=== PATIENT | female | born 1960 | race Caucasian/White ===

== ENCOUNTER 2017-05-01 08:43 | Emergency (ER) | payer BC ==
[2017-05-01 09:16] VITALS: BP 125/72
--- NOTE | 2017-05-01 16:58 | UC ---
Silvana Lopez Edward, scribed for Torie Gates DO on 05/01/17 at 0915 . Headache HPI - HPI Summary HPI Summary: 57 y/o female presents to [facility] c/o severe MISHRA and hematemesis starting this morning. The patient does not describe this as the "worst MISHRA ever," but states this does not feel like a normal migraine. PMHx migraines and often takes Advil for her MISHRA's. The patient took Advil for her MISHRA yesterday. She states an overwhelming not feeling well. The patient woke up in a confused state this morning at 07:30, per the patient's , and screaming to him for help. Per the patient's , the patient was spitting up phlegm and blood on the car ride here. He notes the patient had 5-6 episodes of vomit with bright red blood in the vomit since waking up this morning, per . Associated sx: severe diarrhea last night, dehydration yesterday, N/V, sensitive to bright lights, and trouble walking. Denies neck pain, pain in other places, dizziness, CP, SOB, and ABD pain. PMHx HTN, no cardiac disease. FHx father had type II, pancreatic cancer, lung cancer. Past medications reviewed on visit. Most of history gathered from . - History Of Current Complaint Chief Complaint: UCGeneralIllness Stated Complaint: RESP COMPLAINT Time Seen by Provider: 05/01/17 08:54 Hx Obtained From: Patient Onset/Duration: Sudden Onset, Lasting Hours - This morning, Still Present Onset Of Symptoms: Sudden Initially Headache Was: Severe Currently Pain Is: Severe Timing: Constant, Hours Character: Throbbing, Unable To Describe Location of Headache: Diffuse Aggravating Factor: Bright Lights Associated Signs And Symptoms: Positive: Nausea, Vomiting - Bright red blood in vomit, Other (Noted In Comments) - Confusion, diarrhea yesterday, trouble walking. No CP, SOB, ABD pain. Negative: Dizziness, Neck Pain - Allergies/Home Medications Allergies/Adverse Reactions: Allergies Allergy/AdvReac Type Severity Reaction Status Date / Time No Known Allergies Allergy Verified 05/01/17 08:55 Home Medications: Home Medications Fluticasone NASAL * [Flonase *] 1 spray PRN 05/01/17 [History] PMH/Surg Hx/FS Hx/Imm Hx - Additional Past Medical History Additional PMH: Negative: cardiac disease Previously Healthy: No Cardiovascular History: Hypertension Neurological History: Migraine - Frequently takes NSAIDS - Surgical History Surgical History: None - Family History Known Family History: Positive: Other - Lung cancer, pancreatic cancer Negative: Cardiac Disease, Hypertension, Diabetes - Social History Occupation: Employed Full-time Lives: With Family Alcohol Use: None Substance Use Type: None Smoking Status (MU): Unknown if Ever Smoked Review of Systems Constitutional: Negative Skin: Negative Eyes: Negative ENT: Negative Respiratory: Negative - No SOB Cardiovascular: Negative - No CP Gastrointestinal: Vomiting - Hematemesis, Diarrhea - Last night, Nausea Genitourinary: Negative Motor: Other - Trouble walking Neurovascular: Negative Musculoskeletal: Negative Neurological: Headache - Severe, Other - Confusion Psychological: Negative All Other Systems Reviewed And Are Negative: Yes Physical Exam Triage Information Reviewed: Yes Completion Of Physical Exam Limited Due To: Altered Mental Status Appearance: Well-Nourished, Ill-Appearing - Moderately, Pain Distress - Moderate , Obese, Other: - Somnalent Vital Signs: Initial Vital Signs Temp 97.5 F 05/01/17 08:47 Pulse 87 05/01/17 08:47 Resp 16 05/01/17 08:47 BP 125/72 05/01/17 08:47 Pulse Ox 97 05/01/17 08:47 Vital Signs Reviewed: Yes Eyes: Positive: Conjunctiva Clear. Negative: Discharge ENT: Positive: Hearing grossly normal. Negative: Muffled/hoarse voice Neck: Positive: Supple, Nontender Respiratory: Positive: Lungs clear, Normal breath sounds, No respiratory distress, No accessory muscle use Cardiovascular: Positive: RRR, No Murmur Abdomen Description: Positive: Nontender, Soft. Negative: Distended, Guarding Bowel Sounds: Positive: Present Musculoskeletal Exam: Normal Neurological Exam: Normal - A&Ox3, CN II-XII INTACT, SENSORY MOTOR INTACT, REFLEXES INTACT, NO CEREBELLAR SIGNS, FACIAL SYMMETRY, NEGATIVE ROMBERG, NORMAL GAIT, negative kernig's and brudzinsky's Neurological: Positive: Alert, Muscle Tone Normal Psychological: Positive: Age Appropriate Behavior Skin Exam: Normal, Other - Warm, dry, normal color - Additional Comments Bloody vomit remains on shirt. Most of history gathered from Headache Course/Dx - Course Course Of Treatment: Patient's called EMS ([facility]) who instructed the patient to go to the and also helped the patient get into the car as she could not walk. While the patient was being prepared to go to the hospital, she cried out in pain indicating head pain, per nursing. The patient gripped her head and became unresponsive @ 09:54, I was called back into the room at this time. Her HR was regular and the patient was breathing on her own but struggling to breath. A nasalpharyngeal airway was inserted by paramedics, the patient was bagmasked and hooked to a monitor, showing NSR with ectopic beats, transient tachy, transient destin, and transient severely elevated BP. It was difficult to obtain O2 sat reading in the high 80's. An IO was inserted, but no meds were given here as we were uncertain of her hydration status. The patient left for the hospital with a BP of 158/90. @ time of departure, all vital signs were otherwise stable. - Differential Dx/Diagnosis Differential Diagnosis/HQI/PQRI: CVA, Meningitis, Migraine, Subarachnoid Hemorrhage, Tension Headache, Viral Syndrome, Other - gi bleed, brain mass, seizure Provider Diagnoses: ams, mishra, hematemesis Discharge - Discharge Plan Condition: Stable Disposition: TRANS HIGHER LVL OF CARE FAC Referrals: Veronica Greer PA [Primary Care Provider] - The documentation as recorded by the Silvana dawson Edward accurately reflects the service I personally performed and the decisions made by , Torie Gates DO.
== END 2017-05-01 10:14 | disposition short-term general hospital (02) ==
LOC: UCEAST 08:43
DX: R41.82 Altered mental status, unspecified (principal); R51 Headache; K92.0 Hematemesis; I49.49 Other premature depolarization; R00.0 Tachycardia, unspecified; R00.1 Bradycardia, unspecified; R03.0 Elevated blood-pressure reading, without diagnosis of hypertension; I10 Essential (primary) hypertension; G43.909 Migraine, unspecified, not intractable, without status migrainosus; Z79.1 Long term (current) use of non-steroidal anti-inflammatories (NSAID)
CPT/HCPCS: 99215; G0463

== ENCOUNTER 2017-05-01 10:30 | Emergency (ER) | payer BC ==
[2017-05-01] MEDS ORDERED: NS 0.9% 1000 ML* 1,000 ML IV ONE (10:32)
[2017-05-01 10:47] LABS: Hematocrit 50 % (35-47); Hemoglobin 16.2 g/dl (12.0-16.0); Mean Corpuscular HGB Conc 32 g/dl (31-36); Mean Corpuscular Hemoglobin 29 pg (27-31); Mean Corpuscular Volume 92 fL (80-97); Mean Platelet Volume 9 um3 (7.4-10.4); Red Cell Distribution Width 14 % (10.5-15); White Blood Count 27.3 10^3/ul (3.5-10.8)
[2017-05-01 10:49] LABS: Add Diff/Slide Review? Slide Review Added; Comments Flag Yes
[2017-05-01] MEDS ORDERED: Succinylcholine* 20 MG/ML 10 ML VIAL ONE (10:54)
--- NOTE | 2017-05-01 11:01 | RAD ---
Indication: Neurologic changes, combative. CT of the brain was performed without IV contrast. Ventricular structures are midline. Extensive subarachnoid hemorrhage is noted in the basilar cisterns, sylvian fissure and interhemispheric fissure. There is also subarachnoid hemorrhage in the left sylvian fissure. No midline shift is noted. The ventricles are normal in size. IMPRESSION: Extensive subarachnoid hemorrhage involving basilar cisterns, sylvian fissures and interhemispheric fissures. No midline shift is noted.
[2017-05-01] MEDS ORDERED: Midazolam* 1 MG/ML 2 ML VIAL (2 MG) IV ONE (11:14)
[2017-05-01] MEDS ORDERED: Propofol* 100 ML ONE (11:18)
[2017-05-01] MEDS ORDERED: Midazolam* 1 MG/ML 10 ML VIAL (10 MG) ONE (11:18)
[2017-05-01] MEDS ORDERED: Mannitol 25% (12.5 GM) 50 ML* 12.5 GM/50 ML VIAL IV ONE (11:23)
[2017-05-01] MEDS ORDERED: niMODipine CAP* 30 MG ONE (11:25)
[2017-05-01 11:34] LABS: ALT 23 U/L (7-52); Alkaline Phosphatase 54 U/L (34-104); BUN/Creatinine Ratio 22.2 (8-20); Blood Urea Nitrogen 20 mg/dL (6-24); CO2 Carbon Dioxide 17 mmol/L (22-32); Calcium 8.9 mg/dL (8.6-10.3); Chloride 106 mmol/L (101-111); Cholesterol 226 mg/dL; EGFR African American 82.4 (>60); EGFR Non-African American 64.1 (>60); Globulin 2.5 g/dL (2-4); Glucose 230 mg/dL (70-100); HDL Cholesterol 35.7 mg/dL; LDL Cholesterol 137 mg/dL; Sodium 137 mmol/L (133-145); Total Protein 6.5 g/dL (6.4-8.9); Triglycerides 267 mg/dL
[2017-05-01 11:40] LABS: Anion Gap 14 mmol/L (2-11)
[2017-05-01 11:44] VITALS: BP 137/100
[2017-05-01] MEDS ORDERED: Midazolam* 1 MG/ML 5 ML VIAL (5 MG) IV ONE (11:58)
[2017-05-01] MEDS ORDERED: Propofol* 500 MG/50 ML BTL IV SCH (12:00)
--- NOTE | 2017-05-01 12:01 | ED ---
Belinda Lopez Thomas, scribed for Moe Osuna MD on 05/01/17 at 1043 . Complex/Multi-Sys Presentation - HPI Summary HPI Summary: The pt is a 57 y/o F BIBA from [facility] after her condition deteriorated after being seen there. Per EMS, she became unresponsive after being seen at Urgent Care. Per EMS, she has had a MISHRA since last night. She still had one when she woke up this AM. She additionally c/o hemoptysis (per EMS, in the ambulance), generalized illness (since the last few days). Per EMS she has an IO on her R side. Per EMS, she had agonal respiration after she became unresponsive. Per EMS , she was sinus in the ambulance. Pt additionally c/o Per EMS, she recently returned from [place] 10 days ago. Her arrived just before the pt headed down to [place] at approximately 10:40. Per , additionally c/o MISHRA ( since last night before she went to bed), sinus pressure (onset yesterday before she went to sleep), fever, hemoptysis ("spiting up fluid and blood", onset this AM). The pt's notes that at 07:30 this AM she was "hysterical --very atypical", and she was having short conversations. [place] ambulance told the that they thought the pt was had applied too much medication for her sinus infection, although he notes that they did not diagnose her with that. Per , Arianna indicated that they did not think she was having a stroke. Per , she needed help when entering the car. Per , she had been taking "lots of ibuprofen the last few days". PMHx: HTN (well- controlled, she takes hydrochlorothiazide). LEVEL 5 CAVEAT: HPI IS LIMITED BECAUE PATIENT NO FOLLOW COMMANDS - History Of Current Complaint Hx Obtained From: Family/Commercial Lending Vice President - , EMS - [place] [facility] Hx From Patient Unobtainable Due To: Altered Mental Status Associated Signs And Symptoms: Positive: Headache - onset last night and this AM , Hemoptysis, Fever, Other - POS: unresponsive (after being seen at Urgent Care) , generalized illness (per ), agonal respiration (per EMS), "hysterical-- very atypical" (per ), "sinus pressure" - Allergies/Home Medications Allergies/Adverse Reactions: Allergies Allergy/AdvReac Type Severity Reaction Status Date / Time No Known Allergies Allergy Verified 05/01/17 08:55 PMH/Surg Hx/FS Hx/Imm Hx Previously Healthy: No - LEVEL 5 CAVEAT: PMHX IS LIMITED BECAUE PATIENT NO FOLLOW COMMANDS Cardiovascular History: Reports: Hx Hypertension Opthamlomology History: Denies: Hx Legally Blind - Cancer History Hx Chemotherapy: No Hx Radiation Therapy: No Infectious Disease History: Denies: Hx Clostridium Difficile, Hx Hepatitis, Hx Human Immunodeficiency Virus (HIV), Hx of Known/Suspected MRSA, Hx Shingles, Hx Tuberculosis, Hx Known/ Suspected VRE - Family History Known Family History: Positive: Other - LEVEL 5 CAVEAT: PMHX IS LIMITED BECAUE PATIENT NO FOLLOW COMMANDS - Social History Alcohol Use: None Substance Use Type: Reports: None Smoking Status (MU): Unknown if Ever Smoked Review of Systems - ROS Summary Review of Systems Summary: LEVEL 5 CAVEAT: ROS IS LIMITED BECAUE PATIENT DOES NOT FOLLOW COMMANDS Positive: Fever ENT: Other - POS: "sinus pressure" (onset last night, per ) Positive: Other - POS: hemptysis (per and EMS, "coughing up blood and fluid"); agonal respiratoin (per EMS, in the ambulance) Neurological: Other - POS: unresponsive after being seen at urgent care [facility] [employer]; "hysterical--very atypical" (per ); abnormally short conversations Positive: Headache - onset last night and still this AM All Other Systems Reviewed And Are Negative: No Physical Exam - Summary Physical Exam Summary: Physical Exam is limited by the patient's inability to follow commands. VITAL SIGNS: GENERAL: The patient is an obese female. She is very lethargic and obtunded. She is not able to follow commands. HEAD AND FACE: EMS placed a nasal trumpet in the patient's R nostril. EYES: The pupils are reactive to light. LUNGS: The lungs have bilateral crackles. CVS: S1 and S2 present. No murmurs appreciated. ABDOMEN: Decreased bowel sounds are noted. EXTREMITIES: No edema noted NEURO: Obtunded, does not follow commands. GCS 7 SKIN: warm and dry LEVEL 5 CAVEAT: PE IS LIMITED BY THE PATIENT'S INABILITY TO FOLLOW COMMANDS Triage Information Reviewed: Yes Vital Signs Reviewed: Yes Procedures - Intubation Time of Intubation: 11:00 - approximately Intubation Method: nasotracheal Diagnostics - Laboratory Lab Results: Lab Results 05/01/17 05/01/17 05/01/17 Range/Units 10:38 10:38 10:58 WBC 27.3 H (3.5-10.8) 10^3/ul RBC 5.50 H (4.0-5.4) 10^6/ul Hgb 16.2 H (12.0-16.0) g/dl Hct 50 H (35-47) % MCV 92 (80-97) fL MCH 29 (27-31) pg MCHC 32 (31-36) g/dl RDW 14 (10.5-15) % Plt Count 316 (150-450) 10^3/ul MPV 9 (7.4-10.4) um3 Neut % (Auto) 82.1 (38-83) % Lymph % (Auto) 10.9 L (25-47) % [place] % (Auto) 6.7 (1-9) % Eos % (Auto) 0.1 (0-6) % Baso % (Auto) 0.2 (0-2) % Absolute Neuts (auto) 22.4 H (1.5-7.7) 10^3/ul Absolute Lymphs (auto) 3.0 (1.0-4.8) 10^3/ul Absolute Monos (auto) 1.8 H (0-0.8) 10^3/ul Absolute Eos (auto) 0 (0-0.6) 10^3/ul Absolute Basos (auto) 0.1 (0-0.2) 10^3/ul Absolute Nucleated RBC 0.02 10^3/ul Nucleated RBC % 0.1 INR (Anticoag Therapy) 0.92 (0.89-1.11) APTT 25.7 L (26.0-36.3) seconds Sodium (133-145) mmol/L Potassium Chloride (101-111) mmol/L Carbon Dioxide (22-32) mmol/L Anion Gap BUN (6-24) mg/dL Creatinine (0.51-0.95) mg/dL Est GFR ( Amer) (>60) Est GFR (Non-Af Amer) (>60) BUN/Creatinine Ratio (8-20) Glucose (70-100) mg/dL Calcium (8.6-10.3) mg/dL Total Bilirubin (0.2-1.0) mg/dL AST ALT (7-52) U/L Alkaline Phosphatase (34-104) U/L Troponin I Total Protein (6.4-8.9) g/dL Albumin (3.2-5.2) g/dL Globulin (2-4) g/dL Albumin/Globulin Ratio (1-3) Triglycerides mg/dL Cholesterol mg/dL LDL Cholesterol mg/dL HDL Cholesterol mg/dL Blood Type A Positive Antibody Screen Negative 05/01/17 Range/Units 10:58 WBC (3.5-10.8) 10^3/ul RBC (4.0-5.4) 10^6/ul Hgb (12.0-16.0) g/dl Hct (35-47) % MCV (80-97) fL MCH (27-31) pg MCHC (31-36) g/dl RDW (10.5-15) % Plt Count (150-450) 10^3/ul MPV (7.4-10.4) um3 Neut % (Auto) (38-83) % Lymph % (Auto) (25-47) % [place] % (Auto) (1-9) % Eos % (Auto) (0-6) % Baso % (Auto) (0-2) % Absolute Neuts (auto) (1.5-7.7) 10^3/ul Absolute Lymphs (auto) (1.0-4.8) 10^3/ul Absolute Monos (auto) (0-0.8) 10^3/ul Absolute Eos (auto) (0-0.6) 10^3/ul Absolute Basos (auto) (0-0.2) 10^3/ul Absolute Nucleated RBC 10^3/ul Nucleated RBC % INR (Anticoag Therapy) (0.89-1.11) APTT (26.0-36.3) seconds Sodium 137 (133-145) mmol/L Potassium Pending Chloride 106 (101-111) mmol/L Carbon Dioxide 17 L (22-32) mmol/L Anion Gap Pending BUN 20 (6-24) mg/dL Creatinine 0.90 (0.51-0.95) mg/dL Est GFR ( Amer) 82.4 (>60) Est GFR (Non-Af Amer) 64.1 (>60) BUN/Creatinine Ratio 22.2 H (8-20) Glucose 230 H (70-100) mg/dL Calcium 8.9 (8.6-10.3) mg/dL Total Bilirubin 0.60 (0.2-1.0) mg/dL AST Pending ALT 23 (7-52) U/L Alkaline Phosphatase 54 (34-104) U/L Troponin I Pending Total Protein 6.5 (6.4-8.9) g/dL Albumin 4.0 (3.2-5.2) g/dL Globulin 2.5 (2-4) g/dL Albumin/Globulin Ratio 1.6 (1-3) Triglycerides 267 mg/dL Cholesterol 226 mg/dL LDL Cholesterol 137 mg/dL HDL Cholesterol 35.7 mg/dL Blood Type Antibody Screen Result Diagrams: 05/01/17 10:38 05/01/17 10:58 Lab Statement: Any lab studies that have been ordered have been reviewed, and results considered in the medical decision making process. - CT CT Brain CT Interpretation: Positive (See Comments) - Extensive subarachnoid hemorrhage involving basilar cisterns, sylvian fissures and interhemispheric fissures. No midline shift is noted. CT Interpretation Completed By: Radiologist - EKG 10:51 Cardiac Rate: NL - 76 BPM EKG Interpretation: NSR. No ST elevation. Complex Multi-Symp Course/Dx Course Of Treatment: Procedure - Endotracheal Intubation. Permit was implied secondary to emergent situation. An LMA and bougie were placed within arm's reach. A Glidescope blade was inserted into the oropharynx at which time the vocal cords were visualized. A 7.5 Indian endotracheal tube was inserted and visualized going through the vocal cords. The stylette was removed. Colorimetric change was visualized on the CO2 meter. Breath sounds were heard in both lung patten equally. The endotracheal tube was placed at 23 cm, measured at the teeth. Portable chest x-ray ordered for confirmation of tube level. Post intubation sedation ordered. Intubation was made at the first attempt. No complications were encountered. Assessment/Plan: The pt is a 57 y/o F BIBA from [facility] after her condition deteriorated after being seen there. Per EMS, she became unresponsive after being seen at Urgent Care. Per EMS, she has had a MISHRA since last night. She still had one when she woke up this AM. She additionally c/o hemoptysis (per EMS , in the ambulance), generalized illness (since the last few days). Per EMS she has an IO on her R side. Per EMS, she had agonal respiration after she became unresponsive. Per EMS, she was sinus in the ambulance. Pt additionally c/o Per EMS, she recently returned from [place] 10 days ago. Her arrived just before the pt headed down to [place] at approximately 10:40. Per , additionally c/o MISHRA (since last night before she went to bed), sinus pressure ( onset yesterday before she went to sleep), fever, hemoptysis ("spiting up fluid and blood", onset this AM). The pt's notes that at 07:30 this AM she was "hysterical--very atypical", and she was having short conversations. [place] ambulance told the that they thought the pt was had applied too much medication for her sinus infection, although he notes that they did not diagnose her with that. Per , Arianna indicated that they did not think she was having a stroke. Per , she needed help when entering the car. Per , she had been taking "lots of ibuprofen the last few days". PMHx: HTN (well-controlled, she takes hydrochlorothiazide). The patient initially came via ambulance. The patient was obtunded and she has a trumpet in her R nostril. We immediately sent her to CT scan, which shows Extensive subarachnoid hemorrhage involving basilar cisterns, sylvian fissures. and interhemispheric fissures. No midline shift is noted. In order to protect the airway, she was intubated. There was one attempt for intubation. At this point , the airway is controlled. She was given Keppra 1.5g, mannitol 50g. At this time we discussed the case with Dr. Patricia from [facility], who accepted the patient. He also recommended Nimodipine 60mg via NG tube. He also recommended to transfer the patient by helicopter as soon as possible. The patient is stable but critical at this point, intubated, and awaiting transport via helicopter. - Diagnoses Differential Diagnoses/HQI/PQRI: Cardiac Ischemia, CVA Provider Diagnoses: Subarachnoid hemorrhage - Physician Notifications Discussed Care Of Patient With: Yue Schneider Time Discussed With Above Provider: 10:52 Instructed by Provider To: Other - Consulted with Yue Schneider, who will not take the patient. Consulted with Dr. Woodall, neurosurgery at [facility], who will accept the patient. Discharge - Discharge Plan Condition: Stable Disposition: TRANS HIGHER LVL OF CARE FAC Discharge Disposition Comment: Jasen Hollingsworth Referrals: Veronica Greer PA [Primary Care Provider] - The documentation as recorded by the Belinda dawson Thomas accurately reflects the service I personally performed and the decisions made by , Moe Osuna MD.
--- NOTE | 2017-05-01 12:44 | RAD ---
Indication: Respiratory failure. Single frontal view of the chest performed at 1130 hours was reviewed. No prior study is available. No mediastinal shift is noted. Cardiomegaly is noted. Nasogastric tube and endotracheal tube is in place. IMPRESSION: TUBES AND LINES APPEAR IN APPROPRIATE POSITION. VASCULAR CONGESTION IS NOTED.
== END 2017-05-01 12:50 | disposition short-term general hospital (02) ==
LOC: ED 10:30
DX: I60.9 Nontraumatic subarachnoid hemorrhage, unspecified (principal); R51 Headache; R41.82 Altered mental status, unspecified
CPT/HCPCS: 36415; 70450; 71010; 80053; 80061; 84484; 85025; 85610; 85730; 86850; 86900; 86901; 93005; 94002; 99285; A9270-GY; J0330; J2250; J2704

== ENCOUNTER 2018-10-28 09:40 | Emergency (ER) | payer BC ==
[2018-10-28 10:01] VITALS: BP 151/98
--- NOTE | 2018-10-28 12:48 | UC ---
Skin Complaint HPI - HPI Summary HPI Summary: Patient states yesterday she noticed some discomfort under her left breast. Patient states this morning it was red, more painful. No drainage. No trauma. No fevers or chills. Patient is not immunocompromised or anticoagulated. Patient states she's never had anything similar. Patient gets annual mammograms all which are normal and not concerning. No history of breast cancer. No nipple changes. Patient's medications reviewed this visit. - History of Current Complaint Chief Complaint: UCSkin Time Seen by Provider: 10/28/18 10:06 Stated Complaint: SPOT ON L BREAST Hx Obtained From: Patient ?: No Onset/Duration: Gradual Onset Skin Exposure Onset/Duration: Days Ago Onset Severity: Mild Pain Intensity: 1 - Allergy/Home Medications Allergies/Adverse Reactions: Allergies Allergy/AdvReac Type Severity Reaction Status Date / Time No Known Allergies Allergy Verified 10/28/18 10:01 Home Medications: Home Medications Aspirin 81 mg CHEW TAB* [Aspirin Low Dose TAB*] 81 mg PO DAILY 10/28/18 [ History Confirmed 10/28/18] Atorvastatin* [Lipitor*] 40 mg PO 1700 10/28/18 [History Confirmed 10/28/18] Metoprolol Tartrate TAB* [Lopressor TAB*] 25 mg PO DAILY 10/28/18 [History Confirmed 10/28/18] Potassium Chlor TAB* [Klor Con ER TAB*] 20 meq PO DAILY 10/28/18 [History Confirmed 10/28/18] PMH/Surg Hx/FS Hx/Imm Hx Previously Healthy: Yes Cardiovascular History: Hypertension Neurological History: Other - ruptured aneursym - Surgical History Surgical History: None Surgery Procedure, Year, and Place: cranial anurism - Family History Known Family History: Positive: Non-Contributory Negative: Cardiac Disease, Hypertension, Diabetes - Social History Alcohol Use: Occasionally Substance Use Type: None Smoking Status (MU): Never Smoked Tobacco Review of Systems All Other Systems Reviewed And Are Negative: Yes Constitutional: Negative: Fever Skin: Positive: Other - left breast Is Patient Immunocompromised?: No Physical Exam - Summary Physical Exam Summary: Vital Signs Reviewed: Yes A+Ox3, no distress Eyes: Conjunctiva Clear ENT: Hearing grossly normal neck: supple Respiratory: Positive: No respiratory distress, No accessory muscle use Cardiovascular: skin color reflect adequate perfusion Musculoskeletal Exam: HOLLOWAY x 4 without difficulty Neurological: Positive: Alert, ambulatory without difficulty Psychological: Positive: Normal Response To Family Skin: Positive: left breast: left,lower outer quadrant pt with 2x2cm area of erythema with central pointing lesion - with gentle pressure - open and drained - wound culture taken. no fluctuance, no induration - demarcated Triage Information Reviewed: Yes Vital Signs: Initial Vital Signs Temp 98.6 F 10/28/18 09:55 Pulse 70 10/28/18 09:55 Resp 18 10/28/18 09:55 BP 151/98 10/28/18 09:55 Pulse Ox 95 10/28/18 09:55 Course/Dx - Course Course Of Treatment: Pt presents with 24 hours progessive area or erythema left lower outer breast. No h/o similar. No h/o MRSA - pt has been hospitalized < 2 years ago. not immunocompromised. Expressed wound and cultures taken. No appeciable abscess. demarcate erythema. doxy. reviewed with pt s/s worsening infection, return precautions. slightly elevated bloood pressure - existing diagnosis - Diagnoses Provider Diagnosis: Cellulitis Discharge - Sign-Out/Discharge Documenting (check all that apply): Patient Departure All imaging exams completed and their final reports reviewed: No Studies - Discharge Plan Condition: Stable Disposition: HOME Prescriptions: DOXYcycline CAP(*) [DOXYcycline 100MG CAP(*)] 100 mg PO BID #20 cap Patient Education Materials: Cellulitis (ED) Referrals: Veronica Greer PA [Primary Care Provider] - Additional Instructions: - apply warm soaks, 3 times a day for 10 min - Take antibiotics as prescribed until gone - A sample from your wound has been sent to the lab for further testing - if you need a different antibiotic you will receive a call from a care long line teamster - monitor your wound for increased reddness, red streaking - if you develop increased reddness, fever, pain, or any other concerns it is recommended you go to the emergency department for further evaluation - schedule a follow-up with your primary doctor for later this week. - Billing Disposition and Condition Condition: STABLE Disposition: Home
--- OUTSIDE RECORDS SUMMARY | 2018-10-28 13:29 | XMS REPORT | Continuity of Care Document ---
:1960 External Reference #:[id number] Author Name Jeaneth Onofre Care Team Providers Name Role Phone Veronica Greer PA Care Team Information Gifts Officer Unavailable Veronica Greer PA Primary Care Physician Unavailable Payers Type Date Identification Numbers Payment Provider Subscriber Policy Number: [id number] [employer] Wendy Dejesus PayID: [id number] [address] [address] [place] [address] Advance Directives Description No Information Available Problems Date Description Provider Status Onset: 06/30/2018 Communicating hydrocephalus Ilir Felton M.D. 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 [facility] Tobacco Use Start: Unknown Never Smoked Cigarettes Smoking Status Reviewed: 10/18/18 Never Smoked Cigarettes ETOH Use Drinks Alcoholic Beverages Occasionally Tobacco Use Start: Unknown Patient has never smoked Recreational Drug Use Denies Drug Use Exercise Type/Frequency Exercises sporadically yoga 1 time a week, PT and personal training 2x week Allergies, Adverse Reactions, Alerts Description No Known Drug Allergies Medications Medication Date Status Form Strength Qnty SIG Indications Ordering Provider Proair HFA 08/08/ Active Aerosol 108(90Base 17gm 1 puff Aydee 2017 ) mcg/Act every 6 Selene, hours as MD needed Aspirin Ec 00/ Active Tablets DR 81mg take 1 tab Unknown 0000 by mouth every day Atorvastatin 00/00/ Active Tablets 40mg 1 by mouth Unknown Calcium 0000 every day Metoprolol /00/ Active Tablets 25mg 2 tablets Unknown Tartrate 0000 in Am, 1 tab hs hold for sbo <100 hr <60 Potassium 00/ Active Tablets ER 20Meq 1 by mouth Unknown Chloride ER 0000 every day Sertraline HCL 00/ Active Tablets 25mg 1 tab [place], 0000 daily FAHAD Mina Symbicort 01/30/ Hx Aerosol 80-4.5mcg/ 13.8u 2 puff R06.02 Aydee 2018 - Act nits twice a Seleen, 08/07/ day 2018 Amitriptyline / Hx Tablets 25mg 1 by mouth Unknown HCL 0000 - every 04/16/ night at 2018 bedtime Cetirizine HCL / Hx Tablets 10mg 1 by mouth Unknown 0000 - every day 2018 Milk Of / Hx Suspension 400mg/5ML once a day Unknown Magnesia 0000 - 2016 Plavix / Hx Tablets 75mg 1 by mouth Unknown 0000 - every day 2017 Protonix / Hx Tablets DR 40mg 1 by mouth Unknown 0000 - every day 10/18/ (pt not 2018 currently using) Vimpat / Hx Tablets 200mg 1 tab by Unknown 0000 - mouth 09/29/ twice a 2017 day Fluticasone / Hx Suspension 50mcg/Act 2 sprays Unknown Propionate 0000 - each 10/17/ nostril 2019 daily as needed Lisinopril / Hx Tablets 10mg 1/2 [place], 0000 - tablets by Veronica 10/17/ FAHAD Vogt 2019 daily Immunizations Description No Information Available Vital Signs Date Vital Result Comment 10/18/2018 10:35am Height 67 inches 5'7" Weight 253.38 lb Heart Rate 56 /min BP Systolic Sitting 104 mmHg Lue large cuff BP Diastolic Sitting 70 mmHg Lue large cuff Respiratory Rate 12 /min O2 % BldC Oximetry 95 % BMI (Body Mass Index) 39.7 kg/m2 06/30/2018 11:08am Height 67 inches 5'7" Weight 232.00 lb BP Systolic Sitting 102 mmHg BP Diastolic Sitting 70 mmHg Pain Level 0 BMI (Body Mass Index) 36.3 kg/m2 04/17/2018 9:10am Height 67 inches 5'7" Weight 232.50 lb Heart Rate 72 /min BP Systolic Sitting 122 mmHg Lue large cuff BP Diastolic Sitting 80 mmHg Lue large cuff Respiratory Rate 16 /min O2 % BldC Oximetry 93 % BMI (Body Mass Index) 36.4 kg/m2 03/06/2018 2:07pm Height 67 inches 5'7" Weight 231.00 lb Heart Rate 70 /min BP Systolic Sitting 104 mmHg Rue large cuff BP Diastolic Sitting 74 mmHg Rue large cuff Respiratory Rate 16 /min O2 % BldC Oximetry 92 % BMI (Body Mass Index) 36.2 kg/m2 01/30/2018 9:47am Height 67 inches 5'7" Weight 225.00 lb Heart Rate 72 /min BP Systolic Sitting 106 mmHg BP Diastolic Sitting 70 mmHg Respiratory Rate 14 /min O2 % BldC Oximetry 96 % BMI (Body Mass Index) 35.2 kg/m2 Neck Circumference in inches 16 11/16/2017 3:27pm Height 67 inches 5'7" Weight 215.00 lb Heart Rate 80 /min BP Systolic Sitting 102 mmHg Lue large cuff BP Diastolic Sitting 72 mmHg Lue large cuff BP Systolic Standing 98 mmHg Lue BP Diastolic Standing 64 mmHg Lue Respiratory Rate 16 /min BMI (Body Mass Index) 33.7 kg/m2 Ejection Fraction 60-65% 11/07/17 09/30/2017 12:56pm Height 67.25 inches 5'7.25" Weight 208.00 lb No shoes Heart Rate 62 /min BP Systolic 110 mmHg Rue lrg cuff-doppler confirmed BP Diastolic 50 mmHg Rue lrg cuff-doppler confirmed BP Systolic Sitting 102 mmHg Lue lrg cuff-Doppler confirmed BP Diastolic Sitting 50 mmHg Lue lrg cuff-Doppler confirmed BP Systolic Standing 84 mmHg Lue lrg cuff-Doppler confirmed BP Diastolic Standing 52 mmHg Lue lrg cuff-Doppler confirmed Respiratory Rate 15 /min BMI (Body Mass Index) 32.3 kg/m2 Results Test Date Facility Test Result H/L Range Note Laboratory test 10/31/2017 [facility] B-Type Natriuretic 40 pg/ mL [address] [place] [address] [phone] 1 >100 to <200 pg/mL: likely compensated congestive heart failure (CHF) 200 to 400 pg/mL: likely moderate CHF >400 pg/mL: likely moderate to severe CHF Procedures Date Code Description Status 02/03/2018 15407 Diffusing Capacity Completed 02/03/2018 13770 Plethysmography Determination Lung Volumes & Per Airway Completed Resist 02/03/2018 18001 Pulmonary Function><Bronchodil Completed 11/07/2017 52606 ECHO Transthoracic, Real-Time 2D With Doppler And Color Completed Flow 11/07/2017 80309 ECHO Transthoracic, Real-Time 2D With Doppler And Color Completed Flow 09/30/2017 38613 EKG Tracing & Interpretation Completed Encounters Type Date Location Provider Dx Diagnosis Office Visit 06/30/2018 Neurosurgery Ilir Felton, G91.0 Communicating 11:00a [facility] hydrocephalus Office Visit 04/17/2018 Pulmonology And Aydee Morton, R06.02 Shortness of breath 9:15a [facility]uto I27.20 Pulmonary hypertension, unspecified E66.09 Other obesity due to excess calories Office Visit 03/06/2018 2:00p Pulmonology And Rachel Meehan R06.02 Shortness of Sleep [facility] Hurt breath Interventional Cardiologist J98.4 Other disorders of lung Office Visit 01/30/2018 10:00a Pulmonology And Aydee R06.02 Shortness of Sleep [facility] Selene breath Interventional Cardiologist J98.4 Other disorders of lung E66.09 Other obesity due to excess calories G47.9 Sleep disorder, unspecified Z68.35 Body mass index (BMI) 35.0-35.9, adult Office Visit 11/16/2017 Kenzie Meehan I62.9 Nontraumatic 3:40p Cardiology Franklin Negro DO intracranial Interventional Cardiologist FACC hemorrhage, unspecified Office Visit 09/30/2017 Kenzie Meehan R94.31 Abnormal 1:00p Cardiology Franklin Negro DO electrocardiogram [facility] FACC [ECG] [EKG] R06.02 Shortness of breath I10 Essential (primary) hypertension Office Visit 07/29/2017 9:30a [facility] Sabi Gonzalez I62.9 Nontraumatic M.DPorter intracranial hemorrhage, unspecified I10 Essential (primary) hypertension G43.909 Migraine, unsp, not intractable, without status migrainosus Plan of Treatment 10/18/2018 - Aydee Morton, MDR06.02 Shortness of breathFollow up:PRNE66.09 Other obesity due to excess [id number] Pulmonary hypertension, unspecified
== END 2018-10-28 10:35 | disposition home or self-care (01) ==
LOC: UCEAST 09:40
DX: N61.0 Mastitis without abscess (principal); I10 Essential (primary) hypertension; Z79.82 Long term (current) use of aspirin
CPT/HCPCS: 87070; 87077; 87186; 87205; 87640; 87641; 99212; G0463

== ENCOUNTER 2018-12-08 18:32 | Emergency (ER) | payer BC ==
--- NOTE | 2018-12-08 19:05 | ED ---
Complex/Multi-Sys Presentation - HPI Summary HPI Summary: Pt is 58 y/o F who presents to ED c/o abdominal mass. Yesterday she went to visit her PCP who noticed a lump and ordered an ultrasound. The ultrasound showed there was a larger mass and a CT was ordered. The CT showed a cerebrospinal fluid leak and blockage in cerebral drain per nurses report. Pt denies any symptoms or pain. 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 - History Of Current Complaint Chief Complaint: EDGeneral Time Seen by Provider: 12/08/18 18:53 Hx Obtained From: Patient Onset/Duration: Still Present Timing: Constant Severity Currently: None - no pain Aggravating Factor(s): Nothing Alleviating Factor(s): Nothing Associated Signs And Symptoms: Positive: Other - abdominal mass - Allergies/Home Medications Allergies/Adverse Reactions: Allergies Allergy/AdvReac Type Severity Reaction Status Date / Time No Known Allergies Allergy Verified 10/28/18 10:01 Home Medications: Home Medications Albuterol inh POWDER (NF) [Proair Respiclick] 2 puff INH Q6HR PRN 12/08/18 [ History Confirmed 12/08/18] Metoprolol Tartrate TAB* [Lopressor TAB*] 25 mg PO BEDTIME 12/08/18 [History Confirmed 12/08/18] Metoprolol Tartrate TAB* [Lopressor TAB*] 50 mg PO QAM 12/08/18 [History Confirmed 12/08/18] Potassium Citrate (NF) [Urocit-K 10 (NF)] 10 meq PO DAILY 12/08/18 [History Confirmed 12/08/18] Sertraline* [Zoloft*] 25 mg PO DAILY 12/08/18 [History Confirmed 12/08/18] PMH/Surg Hx/FS Hx/Imm Hx Endocrine/Hematology History: Denies: Hx Diabetes, Hx Thyroid Disease Cardiovascular History: Reports: Hx Hypertension Respiratory History: Denies: Hx Asthma, Hx Chronic Obstructive Pulmonary Disease (COPD) GI History: Denies: Hx Ulcer Sensory History: Denies: Hx Legally Blind Opthamlomology History: Denies: Hx Legally Blind - Cancer History Hx Chemotherapy: No Hx Radiation Therapy: No - Surgical History Surgery Procedure, Year, and Place: cranial anurism Infectious Disease History: No Infectious Disease History: Denies: Hx Clostridium Difficile, Hx Hepatitis, Hx Human Immunodeficiency Virus (HIV), Hx of Known/Suspected MRSA, Hx Shingles, Hx Tuberculosis, Hx Known/ Suspected VRE, Traveled Outside the [place] in Last 30 Days - Family History Known Family History: Positive: Other - LEVEL 5 CAVEAT: PMHX IS LIMITED BECAUE PATIENT NO FOLLOW COMMANDS, Non-Contributory Negative: Cardiac Disease, Hypertension, Diabetes - Social History Alcohol Use: None Substance Use Type: Reports: None Smoking Status (MU): Never Smoked Tobacco Review of Systems Negative: Fever Positive: Other - Abdominal mass All Other Systems Reviewed And Are Negative: Yes Physical Exam - Summary Physical Exam Summary: Appearance: The patient is obese and well-nourished in no acute distress and in no acute pain. Skin: The skin is warm and dry and skin color reflects adequate perfusion. HEENT: The head is normocephalic and atraumatic. The pupils are equal and reactive. The conjunctivae are clear and without drainage. Nares are patent and without drainage. Mouth reveals moist mucous membranes and the throat is without erythema and exudate. The external ears are intact. The ear canals are patent and without drainage. The tympanic membranes are intact. Neck: The neck is supple with full range of motion and non-tender. There are no carotid bruits. There is no neck vein distension. Respiratory: Chest is non-tender. Lungs are clear to auscultation and breath sounds are symmetrical and equal. Cardiovascular: Heart is regular rate and rhythm. There is no murmur or rub auscultated. There is no peripheral edema and pulses are symmetrical and equal. Abdomen: Firm 4 x 6 cm mass on the right anterior abdomen.There are normal bowel sounds heard in all four quadrants and there is no organomegaly palpated. Musculoskeletal: There is no back tenderness noted. Extremities are non-tender with full range of motion. There is good capillary refill. There is no peripheral edema or calf tenderness elicited. Neurological: Patient is alert and oriented to person, place and time. The patient has symmetrical motor strength in all four extremities. Cranial nerves are grossly intact. Deep tendon reflexes are symmetrical and equal in all four extremities. Psychiatric: The patient has an appropriate affect and does not exhibit any anxiety or depression. Triage Information Reviewed: Yes Vital Signs On Initial Exam: Initial Vitals Temp Pulse Resp BP Pulse Ox 97.8 F 62 18 166/77 92 12/08/18 18:35 12/08/18 18:35 12/08/18 18:35 12/08/18 18:35 12/08/18 18:35 Vital Signs Reviewed: Yes Diagnostics - Vital Signs Vital Signs Temp Pulse Resp BP Pulse Ox 12/08/18 18:35 97.8 F 62 18 166/77 92 - Laboratory Lab Statement: Any lab studies that have been ordered have been reviewed, and results considered in the medical decision making process. Complex Multi-Symp Course/Dx Course Of Treatment: Ms. Dejesus started with a lump on her side yesterday and saw her PCP today who ordered an outpatient ultrasound and subsequent CT scan. She was diagnosed with a subarachnoid hemorrhage 2 years ago here in the emergency department and transferred to [facility] where she received a coil and eventually ended up with a J[employer] C[employer] DEVELOPER shunt. The CT scan today showed that the distal and of the J[employer] C[employer] DEVELOPER shunt has displaced from the perineum into the subcutaneous tissue. She has a BMI of 40. The patient was transferred to the emergency department. I spoke with Dr. Bell who recommended speaking with the surgeon who placed the shunt. I spoke with Dr. Rae at [facility] who reassured us that this is a common complication and since the patient is asymptomatic at this point can be treated as an outpatient. Dr. Paul will see the patient first of next week and we will have them call on Tuesday morning for follow-up. The patient and her understand that if she develops increased symptomatology especially headaches or gait disturbances, they should come back to the emergency department. - Diagnoses Provider Diagnoses: CSF leak - Physician Notifications Discussed Care Of Patient With: Elías Dalal Time Discussed With Above Provider: 19:45 Instructed by Provider To: Other - Agreed to see pt for appointment this week. Discharge - Sign-Out/Discharge Documenting (check all that apply): Patient Departure - Discharge Patient Received Moderate/Deep Sedation with Procedure: No - Discharge Plan Condition: Stable Disposition: HOME Patient Education Materials: Cerebrospinal Fluid Leak (ED) Referrals: Elías Dalal MD [Medical Doctor] - 2 Days Additional Instructions: Follow up with Dr. Dalal. Return to ED for any new or worsening symptoms. - Billing Disposition and Condition Condition: STABLE Disposition: Home - Attestation Statements Document Initiated by Scribe: Yes Documenting Scribe: Allison Kumar Provider For Whom Scribe is Documenting (Include Credential): Dr. Dewayne Kilgore MD Scribe Attestation: I, Allison Kumar, scribed for Dr. Dewayne Kilgore MD on 12/08/18 at 2112. Scribe Documentation Reviewed: Yes Provider Attestation: The documentation as recorded by the scribe, Allison Kumar accurately reflects the service I personally performed and the decisions made by me, Dr. Dewayne Kilgore MD Status of Scribe Document: Viewed
[2018-12-08 20:07] VITALS: BP 145/82
== END 2018-12-08 20:15 | disposition home or self-care (01) ==
LOC: ED 18:32
DX: G97.82 Other postprocedural complications and disorders of nervous system (principal); G96.0 Cerebrospinal fluid leak; I10 Essential (primary) hypertension
CPT/HCPCS: 99282